=== PATIENT | female | born 1990 | race Caucasian/White ===

== ENCOUNTER 2023-09-04 10:25 | Emergency (ER) | payer OTHER, SELFPAY ==
[2023-09-04 10:30] VITALS: BP 108/70
[2023-09-04 10:35] LABS: Glucose - Point of Care 341 mg/dl (70-99)
--- NOTE | 2023-09-04 11:45 | ED.GENMED ---
History of Present Illness
<Alicia Prather MD, Resident - Last Filed: 09/04/23 14:45>
General
Chief Complaint: Abdominal Symptoms
Source: patient and family
Time Seen by Provider: 09/04/23 10:37
History of Present Illness
History of Present Illness:
33-year-old female, Ms. Gilda Blank with history of Down syndrome, hypothyroidism, IDDM presented to the ER complaining of nausea, abdominal pain, vomiting and diarrhea. History is taken from the patient and her mom who is at bedside.
Patient has returned from [place], [place], 2 days ago and had a dentist visit yesterday for toothache. She was started on amoxicillin and she took 2 tablets yesterday. Patient's mom reports fever up to 101 and elevated blood sugar levels in the 250s
from glucose monitor yesterday night. She also reports her right side of the face was swollen(from tooth ache, dental infection). Early in the morning today patient was throwing up, 4 episodes of vomiting, no hematemesis, had epigastric
nonradiating abdominal pain whenever she threw up. Patient reports taking elderberry syrup, Pepcid for her nausea but of no much help. Her last menstrual period was 1 week ago.
If applicable-neuro sx onset
Date of onset of symptoms: 09/03/23
Past History
<Alicia Prather MD, Resident - Last Filed: 09/04/23 14:45>
Past History
ED Past Medical History: IDDM, Hypothyroidism and Other (Down's Syndrome)
ED Past Surgical History: None
Social History
Tobacco: Non-smoker
Alcohol: None
Drug: None
Personal: Single
Living: with family
Family History
Family History: Other (No significant)
Review of Systems
<Alicia Prather MD, Resident - Last Filed: 09/04/23 14:45>
Review of Systems
All Other Systems: ROS reviewed and negative except as documented in HPI and ROS
Phy Exam
<Alicia Prather MD, Resident - Last Filed: 09/04/23 14:45>
Physical Exam
Physical Exam:
GEN: Well appearing. In no acute distress
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
HENT: Right upper incisor� caries, facial swelling on the right side, oral mucosa dry, no JVD, no cervical adenopathy.
Lungs: CTAB, no wheezes, rales, rhonchi, normal chest wall excursion
Cardiac: RRR, no M/R/G, no peripheral edema. Radial pulses 2+ bilat
Abdomen: S, NT, ND, BS +, no masses or hepatosplenomegaly
Neuro: AO x 3, no focal deficits to BUE/BLE, normal sensation throughout
Skin: No rashes, petechiae. Normal color, no pallor or jaundice.
Psych: Calm, cooperative
Course
<Alicia Prather MD, Resident - Last Filed: 09/04/23 14:45>
Orders/Labs/Results
Orders:
Orders
09/04/23 11:39
Urinalysis Reflex To Culture Urgent
Test Result ONCE
09/04/23 11:42
0.9% Sodium Chloride 500 ml [Nss] 500 ml IV BOLUS
Ondansetron Injectable [Zofran] 4 mg IV NOW STA
09/04/23 12:07
Complete Blood Count/With Diff Urgent
Comprehensive Metabolic Panel Urgent
HCG, Serum Qualitative Screen Urgent
Lipase Urgent
09/04/23 12:08
CT Abd/pelvis W Iv Cont Urgent
Comment:
Reason For Exam: abdominal symptoms, nausea, vomiting, diarrhea
09/04/23 13:08
CT Facial Bones W/o Iv Contras Urgent
Comment:
Reason For Exam: right facial swelling
09/04/23 13:36
Ketorolac [Toradol] 15 mg IV NOW STA
09/04/23 13:45
0.9% Sodium Chloride 1000 ml [Nss] 1,000 ml IV 125 mls/hr
Abnormal Lab Results
09/04/23 09/04/23 09/04/23
10:34 12:07 14:39
WBC 14.8 H 10^3/uL
(4.8-10.8)
RBC 3.68 L 10^6/uL
(4.20-5.40)
Hct 35.5 L %
(37.0-47.0)
MCH 34.5 H pg
(27.0-31.0)
Absolute Neuts (auto) 13.3 H 10^3/uL
(1.4-6.5)
Absolute Lymphs (auto) 0.6 L 10^3/uL
(1.2-3.4)
Absolute Monos (auto) 0.9 H 10^3/uL
(0.1-0.6)
Neutrophils % 89.6 H %
(42.2-75.2)
Lymphocytes % 3.8 L %
(20.5-51.1)
Chloride 109 H mmol/L
(98-107)
Carbon Dioxide 16 L mmol/L
(22-30)
BUN 18 H mg/dl
(7-17)
Glucose 324 H mg/dl
(70-99)
POC Glucose 341 H mg/dl 243 H mg/dl
(70-99) (70-99)
09/04/23 12:07
09/04/23 12:07
Vital Signs
Initial and Last Documented VS:
Initial Vital Signs
Temp Pulse Resp BP Pulse Ox
97.8 F 113 20 108/70 100
09/04/23 10:30 09/04/23 10:30 09/04/23 10:30 09/04/23 10:30 09/04/23 10:30
Last Documented Vital Signs
Temp Pulse Resp BP Pulse Ox
97.8 F 98 20 92/55 99
09/04/23 10:30 09/04/23 14:44 09/04/23 10:30 09/04/23 14:44 09/04/23 14:44
<Eduardo Davis MD - Last Filed: 09/04/23 14:41>
Orders/Labs/Results
Orders:
Orders
09/04/23 11:39
Urinalysis Reflex To Culture Urgent
Test Result ONCE
09/04/23 11:42
0.9% Sodium Chloride 500 ml [Nss] 500 ml IV BOLUS
Ondansetron Injectable [Zofran] 4 mg IV NOW STA
09/04/23 12:07
Complete Blood Count/With Diff Urgent
Comprehensive Metabolic Panel Urgent
HCG, Serum Qualitative Screen Urgent
Lipase Urgent
09/04/23 12:08
CT Abd/pelvis W Iv Cont Urgent
Comment:
Reason For Exam: abdominal symptoms, nausea, vomiting, diarrhea
09/04/23 13:08
CT Facial Bones W/o Iv Contras Urgent
Comment:
Reason For Exam: right facial swelling
09/04/23 13:36
Ketorolac [Toradol] 15 mg IV NOW STA
09/04/23 13:45
0.9% Sodium Chloride 1000 ml [Nss] 1,000 ml IV 125 mls/hr
Abnormal Lab Results
09/04/23 09/04/23 09/04/23
10:34 12:07 14:39
WBC 14.8 H 10^3/uL
(4.8-10.8)
RBC 3.68 L 10^6/uL
(4.20-5.40)
Hct 35.5 L %
(37.0-47.0)
MCH 34.5 H pg
(27.0-31.0)
Absolute Neuts (auto) 13.3 H 10^3/uL
(1.4-6.5)
Absolute Lymphs (auto) 0.6 L 10^3/uL
(1.2-3.4)
Absolute Monos (auto) 0.9 H 10^3/uL
(0.1-0.6)
Neutrophils % 89.6 H %
(42.2-75.2)
Lymphocytes % 3.8 L %
(20.5-51.1)
Chloride 109 H mmol/L
(98-107)
Carbon Dioxide 16 L mmol/L
(22-30)
BUN 18 H mg/dl
(7-17)
Glucose 324 H mg/dl
(70-99)
POC Glucose 341 H mg/dl 243 H mg/dl
(70-99) (70-99)
09/04/23 12:07
09/04/23 12:07
Vital Signs
Initial and Last Documented VS:
Initial Vital Signs
Temp Pulse Resp BP Pulse Ox
97.8 F 113 20 108/70 100
09/04/23 10:30 09/04/23 10:30 09/04/23 10:30 09/04/23 10:30 09/04/23 10:30
Last Documented Vital Signs
Temp Pulse Resp BP Pulse Ox
97.8 F 98 20 92/55 99
09/04/23 10:30 09/04/23 14:44 09/04/23 10:30 09/04/23 14:44 09/04/23 14:44
<Alicia Prather MD, Resident - Last Filed: 09/04/23 14:45>
MDM/Problems Addressed
Differential Diagnosis Includes:
Gastroenteritis, appendicitis, IBD, IBS, colitis, antibiotic side effect, DKA
MDM/Problems Addressed:
Labs�leukocytosis, WBC at 14.8, hyperglycemia, no anion gap.
Urinalysis�no evidence of infection
Patient is tachycardic.
Patient was given IV fluids, antiemetics.
CT abdomen pelvis�no evidence of acute pathology
CT facial bones�evidence of right facial soft tissue inflammation may be of dental origin given the history of a recent dental visit.
Patient has clinically improved and hemodynamically stable.
Stable for discharge.
Advised to continue amoxicillin for dental infection and consult electrologist as scheduled.
<Alicia Prather MD, Resident - Last Filed: 09/04/23 14:45>
*Critical Care Note
Total Time (30-74mins, 75-104mins- exclusive of procedures): Not Applicable
ED Attending Note
<Alicia Prather MD, Resident - Last Filed: 09/04/23 14:45>
-
Portions of this chart may have been created with voice recognition software.� Occasional wrong word or��sound alike� substitutions may have occurred due to the inherent limitations of voice recognition software.
<Eduardo Davis MD - Last Filed: 09/04/23 14:41>
ED Attending Note
Patient seen and examined by attending physician: Yes
I performed a history and physical exam of patient and discussed management with resident, I reviewed resident's note and agree with documented findings and plan of care.: Yes
ED Attending Note:
I have seen and evaluated the patient with a [id number] encounter. I have spoken to the resident and involved in the medical history, the physical exam, medical decision making.
Evaluation and management service: agree unless noted differently below.
Results interpretation: agree unless noted differently below.
Focused HPI: 33-year-old female with a past medical history of Down syndrome, insulin-dependent diabetic with an insulin pump, hypothyroidism who presents to the emergency room with her mother for evaluation of nausea and vomiting also fever;
symptoms starting in the setting of recent dental issue. Patient was apparently away for the weekend with her mother and was complaining of pain in the right upper teeth particularly with eating. Mother brought her to the dentist yesterday and she
was diagnosed with a dental infection was started on amoxicillin and has taken 2 doses so far. She was referred to an electrologist to be seen tomorrow. This morning patient woke up and was feeling nauseated and had 2 episodes of vomiting. She did
have 1 episode of loose stool. No blood in vomitus or stool. She also had a low-grade fever of 100.2 �F last night. Mother decided to bring her to the hospital for assessment. Nausea has improved since arrival. She has not had any abdominal
pain. Denies any urinary symptoms. No respiratory symptoms mother did note some slight swelling the right side of the face this morning. No headache, no neck pain or stiffness. No other complaints. Notably, patient has noted higher than usual
blood sugars in the 200s over the past 24 hours.
Physical exam: Awake alert, nontoxic. Tachycardic but otherwise normal vitals�notably afebrile here. She has no visible swelling of the face; she has some tenderness to percussion of the right upper front tooth #8 but no visible drainage or
swelling around the base of the tooth. She has a supple neck without meningismus. Her abdomen is soft and mildly tender in the epigastric region. Her mucous membranes are dry and she has poor skin turgor.
Medical Decision Makin-year-old female presents for evaluation of nausea and vomiting and low-grade fever in the setting of recent dental infection for which she is on amoxicillin. She appears to be dehydrated here. Suspect dental infection
is driving the fever and that nausea and vomiting might be related to recent initiation of antibiotics. Will check labs including a CBC and a CMP. Will check CT of the face. She does have some abdominal tenderness and given her fever we will
check a CT abdomen pelvis as well especially in the setting of a relatively poor historian. Will check urinalysis. Treat pain and nausea and provide fluids. Reassess after the above.
Labs reviewed: CBC shows a leukocytosis to 14.8, CMP shows hyperglycemia, mild metabolic acidosis but no anion gap (11)�suspect GI losses accounts for this rather than DKA; Accu-Chek shows improving blood sugar at 250 with fluids. Patient provided
additional insulin via insulin pump and will continue to monitor. CT of the abdomen pelvis shows no acute pathology. CT of the face shows some inflammation consistent with a dental infection no clear abscess. She is only had 2 doses of
amoxicillin I think it is reasonable to continue this medication for her dental infection. She has follow-up with specialist tomorrow. I think her nausea and vomiting earlier was likely related to recent antibiotic�advised to take with food.
Prescribe Zofran as needed. No clear negation for admission at this point I think she is stable for discharge. Mother and patient are very comfortable with this plan. All questions answered.
Discharge Plan
Departure
Patient Disposition: Home (Routine Discharge)
Date of Disposition: 09/04/23
Time of Disposition: 14:40
Patient with high blood pressure during this ER visit?: No
Discharge Problem:
Dental infection, Dehydration, Nausea & vomiting, Hyperglycemia
Instructions: Dehydration, Adult (DC), Nausea and Vomiting, Adult (DC), Dental Pain ED
Prescriptions:
New
ondansetron 4 mg tablet,disintegrating
4 mg PO TIDPRN PRN (Reason: nausea/vomiting) Qty: 14 0RF
No Action
levothyroxine 125 mcg Tablet
125 mcg PO DAILY@07
drospirenone-ethinyl estradiol 3-0.02 mg Tablet
1 tab PO DAILY
Patient Own Insulin Pump
SC .CONTINUOUS
Patient Comments:
04/06/22: Per pt's mother, basal rate = 0.5 units/hours with boluses 1 unit per 9g of carbs. Pt's mother reports she gave pt extra dose of 4.4 units today @ 1417
Rx Instructions:
Admelog Insulin (lispro)
fexofenadine [Madison] 180 mg Tablet
180 mg PO DAILYPRN PRN (Reason: itchiness)
ondansetron 4 mg tablet,disintegrating
4 mg PO Q4H PRN (Reason: nausea and vomiting) Qty: 10 0RF
Referrals:
Cintia Chavis DO [Family Provider] -
Activity Restrictions/Additional Instructions:
Thank you for visiting the Emergency Department at [facility].
1. Please schedule a follow up appointment as directed. Call first thing tomorrow morning to make an appointment.
2. If indicated, please take your medications as instructed and indicated on discharge paperwork.
3. If any of your symptoms do not improve, or persist, or become more severe within 6-12 hours, please return to the emergency department for further care.
4. Please return to the emergency department if you develop a headache, neck pain/stiffness, fever greater than 100.4F, chest pain, shortness of breath, persistent nausea, vomiting, slurred speech, difficulty walking, numbness/tingling, weakness,
signs of infection or any other symptoms that are worrisome to you.
Please call [phone] if you have any questions.
Interventions
Interventions:
*Risk Screen - Suicide Last Done: 09/04/23 11:29
*General Assessment Last Done: 09/04/23 11:29
*Neglect/Abuse Screening Last Done: 09/04/23 11:29
*ED COVID-19 Vaccine History Last Done: 09/04/23 11:29
UB-Bkhzyy-Atfeiqmkwj Assessment Last Done: 09/04/23 11:29
Discharge Date and Time
Print Language: BELARUSIAN
[2023-09-04] MEDS: ZOFRAN 4 MG IV (12:12)
[2023-09-04] MEDS: NSS 500 IV (12:12)
[2023-09-04 12:23] LABS: % Basophils 0.4 % (0-2); % Eosinophils 0.1 % (0-6); % Immature Granulocytes 0.3 % (0-0.5); % Lymphocytes 3.8 % (20.5-51.1); % Monocytes 5.8 % (1.7-9.3); % Neutrophils 89.6 % (42.2-75.2); Absolute Basophils 0.1 10^3/uL (0-0.2); Absolute Lymphocytes 0.6 10^3/uL (1.2-3.4); Absolute Monocytes 0.9 10^3/uL (0.1-0.6); Absolute Neutrophils 13.3 10^3/uL (1.4-6.5); Hematocrit 35.5 % (37.0-47.0); Hemoglobin 12.7 g/dL (12.0-16.0); Mean Corp Hgb Conc. 35.8 g/dL (33.0-37.0); Mean Corpuscular Hgb 34.5 pg (27.0-31.0); Mean Corpuscular Volume 96.5 fL (81.0-99.0); Mean Platelet Volume 9.5 fL (7.4-10.4); Nucleated Red Blood Cells % 0 %; Platelet Count 243 10^3/uL (130-400); Red Blood Cell Count 3.68 10^6/uL (4.20-5.40); Red Cell Dist. Width 13.3 % (11.5-14.5); White Blood Cell Count 14.8 10^3/uL (4.8-10.8)
[2023-09-04 12:27] LABS: HCG, Serum Qualitative Screen Negative
[2023-09-04 12:38] LABS: ALT (SGPT) 21 U/L (0-35); AST (SGOT) 27 U/L (14-36); Albumin 3.9 g/dl (3.5-5.0); Alkaline Phosphatase 59 U/L (38-126); Blood Urea Nitrogen 18 mg/dl (7-17); Calcium 8.9 mg/dl (8.4-10.2); Carbon Dioxide 16 mmol/L (22-30); Chloride 109 mmol/L (98-107); Glucose 324 mg/dl (70-99); Lipase 197 U/L (23-300); Potassium 4.4 mmol/L (3.5-5.1); Sodium 136 mmol/L (135-145); Total Bilirubin 1.1 mg/dl (0.2-1.3); Total Protein 6.8 g/dl (6.3-8.2); eGFR > 60.00
[2023-09-04] MEDS: TORADOL 15 MG IV (13:44)
[2023-09-04] MEDS: NSS 1000 IV (13:48)
[2023-09-04 14:43] LABS: Glucose - Point of Care 243 mg/dl (70-99)
[2023-09-04 14:44] VITALS: BP 92/55
== END 2023-09-04 15:27 | disposition home or self-care (01) ==
LOC: EMR 10:25
PROVIDERS: Student in an Organized Health Care Education/Training Program; EMERGENCY PHYSICIAN Emergency Medicine; FAMILY PHYSICIAN Family Medicine
DX: R11.2 Nausea with vomiting, unspecified (principal); R10.13 Epigastric pain; R19.7 Diarrhea, unspecified; K04.7 Periapical abscess without sinus; E86.0 Dehydration; E11.65 Type 2 diabetes mellitus with hyperglycemia; Q90.9 Down syndrome, unspecified; E03.9 Hypothyroidism, unspecified; Z79.4 Long term (current) use of insulin; Z96.41 Presence of insulin pump (external) (internal)
CPT/HCPCS: 99285; 96375; 96361; 96374; 70486; 74177; 80053; 82962; 83690; 84703; 85025; Q9967

== ENCOUNTER 2023-12-12 16:47 | Emergency (ER) | payer OTHER, SELFPAY ==
[2023-12-12 16:52] VITALS: BP 112/99
[2023-12-12 16:53] VITALS: BP 112/99
--- NOTE | 2023-12-12 16:56 | ED.GENMED ---
History of Present Illness
General
Chief Complaint: Fainting Sensation
Source: patient and ambulance crew
Exam Limitations: none
Time Seen by Provider: 12/12/23 16:48
History of Present Illness
History of Present Illness:
See MDM
Past History
Past History
ED Past Medical History: IDDM, Hypothyroidism and Other (Down's Syndrome)
ED Past Surgical History: None
Social History
Tobacco: Non-smoker
Alcohol: None
Drug: None
Personal: Single
Living: with family
Family History
Family History: Other (No significant)
Phy Exam
Physical Exam
Physical Exam:
See MDM
Course
Orders/Labs/Results
Orders:
Orders
12/12/23 16:51
Electrocardiogram (*1) Urgent
Reason for Study: Chest Pain
EKG- Treatment ONCE
12/12/23 16:52
Test Result ONCE
12/12/23 16:54
0.9% Sodium Chloride 1000 ml [Nss] 1,000 ml IV BOLUS
12/12/23 16:58
Complete Blood Count/With Diff Urgent
Comprehensive Metabolic Panel Urgent
HCG, Serum Qualitative Screen Urgent
Comment: Notify provider if positive test present
12/12/23 17:53
Urinalysis Reflex To Culture Urgent
Date Specimen was Collected: 12/12/23
Time Specimen was Collected: 17:50
Abnormal Lab Results
12/12/23 12/12/23
16:58 17:53
RBC 3.74 L 10^6/uL
(4.20-5.40)
Hct 35.7 L %
(37.0-47.0)
MCH 34.0 H pg
(27.0-31.0)
Sodium 132 L mmol/L
(135-145)
Potassium 5.3 H mmol/L
(3.5-5.1)
Chloride 97 L mmol/L
(98-107)
Carbon Dioxide 19 L mmol/L
(22-30)
BUN 27 H mg/dl
(7-17)
Glucose 489 H* mg/dl
(70-99)
Urine Ketones 3+ A
(Negative)
Urine Glucose 3+ A
(Negative)
12/12/23 16:58
12/12/23 16:58
Vital Signs
Initial and Last Documented VS:
Initial Vital Signs
Pulse Resp Pulse Ox
103 16 100
12/12/23 16:51 12/12/23 16:51 12/12/23 16:51
Last Documented Vital Signs
Temp Pulse Resp BP Pulse Ox
98.2 F 121 19 97/50 98
12/12/23 16:53 12/12/23 18:15 12/12/23 18:15 12/12/23 18:00 12/12/23 18:15
MDM/Problems Addressed
Differential Diagnosis Includes:
HPI and MDM Narrative:
33-year-old female presenting for evaluation. Patient was at work at the [employer] and she felt unwell so she laid down. A bystander gave her symptom button and called 911. Patient found to be hyperglycemic. Patient states this usually occurs
when she eats certain foods. Patient states she is feeling better. Will obtain basic blood work, EKG and provide IV fluids
Physical exam
General: Well appearing and non-toxic
HEENT: protecting airway. Dry mucous membranes. Left prosthetic eye in place
Neck: appears supple
CV: No evidence of cyanosis. Regular rate and rhythm. Tachycardia resolved during my assessment
Resp: No accessory muscle use
Abd: Non-distended
Extremities: No deformities
Neuro: alert
Psych: Normal affect
Skin: Intact
Problems Addressed including Acute and Chronic Conditions affecting care:
1. Near syncope
Acuity: acute
Prognosis: stable
Details: Likely in setting of dehydration from likely hyperglycemia. Will give IV fluids. EKG nonischemic
2. Hyperglycemia
Acuity: acute
Prognosis: stable
Details: Will obtain basic blood work to rule out any evidence of DKA
Updates
Mother came to bedside. She looked at the insulin pump and the settings. She has been 'high' all day and it was not appropriately set to give her boluses. Mother fixed the settings and her insulin pump started to bolus her
Differential Diagnosis (but not limited to): Hyperglycemia, dehydration
Testing considered: Urinalysis
Drug therapy (if applicable): OTC meds, please see d/c instruction regarding Rx drugs
Amount and/or Complexity of Data Reviewed
Clinical info obtained from: Patient
External data reviewed: N/A
Labs I independently reviewed (but not limited to): Hyperglycemia
Radiology: N/A
Pulse Ox: not hypoxic
EKG independently reviewed: Sinus tachycardia, normal axis, no STEMI
Toll Collector: Sinus rhythm
Critical Care: N/A
Risk of Complication:
Social Determinants of health: Good social support
Discussed with other providers: N/A
Escalation of Care includes Admit/Obs: After being observed in the Emergency Department, pt stable for discharge.
Occasional wrong word or 'sound a like' substitutions may have occurred due to the inherent limitations of voice recognition software. Read the chart carefully and recognize, using context, where substitutions have occurred.
*Critical Care Note
Total Time (30-74mins, 75-104mins- exclusive of procedures): Not Applicable
ED Attending Note
-
Portions of this chart may have been created with voice recognition software.� Occasional wrong word or��sound alike� substitutions may have occurred due to the inherent limitations of voice recognition software.
Discharge Plan
Departure
Patient Disposition: Home (Routine Discharge)
Date of Disposition: 12/12/23
Time of Disposition: 18:48
Patient with high blood pressure during this ER visit?: No
Discharge Problem:
Hyperglycemia
Instructions: High Blood Sugar, Adult ED
Prescriptions:
No Action
levothyroxine 125 mcg Tablet
125 mcg PO DAILY@07
drospirenone-ethinyl estradiol 3-0.02 mg Tablet
1 tab PO DAILY
Patient Own Insulin Pump
SC .CONTINUOUS
Patient Comments:
04/06/22: Per pt's mother, basal rate = 0.5 units/hours with boluses 1 unit per 9g of carbs. Pt's mother reports she gave pt extra dose of 4.4 units today @ 1417
Rx Instructions:
Admelog Insulin (lispro)
fexofenadine [Madison] 180 mg Tablet
180 mg PO DAILYPRN PRN (Reason: itchiness)
ondansetron 4 mg tablet,disintegrating
4 mg PO Q4H PRN (Reason: nausea and vomiting) Qty: 10 0RF
ondansetron 4 mg tablet,disintegrating
4 mg PO TIDPRN PRN (Reason: nausea/vomiting) Qty: 14 0RF
Activity Restrictions/Additional Instructions:
Please return for any worsening symptoms.
You may return at any time if you have further concerns.
Please follow up with your doctor at the first available appointment, preferably this week.
Thank you for choosing [facility].
Interventions
Interventions:
*Risk Screen - Suicide Last Done: 12/12/23 16:53
*General Assessment Last Done: 12/12/23 16:53
*Neglect/Abuse Screening Last Done: 12/12/23 16:53
ED- Fall Risk Assessment Last Done: 12/12/23 16:53
ED- Cardiac Assessment Last Done: 12/12/23 16:53
ED- Neurological Assessment Last Done: 12/12/23 17:06
Discharge Date and Time
Print Language: BELARUSIAN
[2023-12-12] MEDS: NSS 1000 IV (17:00)
[2023-12-12 17:01] VITALS: BP 143/108
[2023-12-12 17:08] LABS: % Basophils 1.4 % (0-2); % Eosinophils 3.2 % (0-6); % Immature Granulocytes 0.5 % (0-0.5); % Lymphocytes 21.7 % (20.5-51.1); % Monocytes 7.8 % (1.7-9.3); % Neutrophils 65.4 % (42.2-75.2); Absolute Basophils 0.1 10^3/uL (0-0.2); Absolute Eosinophils 0.3 10^3/uL (0-0.7); Absolute Lymphocytes 1.8 10^3/uL (1.2-3.4); Absolute Monocytes 0.6 10^3/uL (0.1-0.6); Absolute Neutrophils 5.3 10^3/uL (1.4-6.5); Hematocrit 35.7 % (37.0-47.0); Hemoglobin 12.7 g/dL (12.0-16.0); Mean Corp Hgb Conc. 35.6 g/dL (33.0-37.0); Mean Corpuscular Volume 95.5 fL (81.0-99.0); Mean Platelet Volume 9.4 fL (7.4-10.4); Nucleated Red Blood Cells % 0 %; Platelet Count 259 10^3/uL (130-400); Red Blood Cell Count 3.74 10^6/uL (4.20-5.40); Red Cell Dist. Width 13.1 % (11.5-14.5); White Blood Cell Count 8.1 10^3/uL (4.8-10.8)
[2023-12-12 17:18] LABS: HCG, Serum Qualitative Screen Negative
[2023-12-12 17:27] LABS: ALT (SGPT) 19 U/L (0-35); AST (SGOT) 31 U/L (14-36); Albumin 4.2 g/dl (3.5-5.0); Alkaline Phosphatase 48 U/L (38-126); Blood Urea Nitrogen 27 mg/dl (7-17); Calcium 9.1 mg/dl (8.4-10.2); Carbon Dioxide 19 mmol/L (22-30); Chloride 97 mmol/L (98-107); Glucose 489 mg/dl (70-99); Potassium 5.3 mmol/L (3.5-5.1); Sodium 132 mmol/L (135-145); Total Bilirubin 1.1 mg/dl (0.2-1.3); Total Protein 7.3 g/dl (6.3-8.2); eGFR > 60.00
[2023-12-12 18:00] VITALS: BP 97/50
[2023-12-12 18:04] LABS: Urine Albumin Negative (Neg - Trace); Urine Bilirubin Negative (Negative); Urine Character Clear (Clear); Urine Color Yellow; Urine Glucose 3+ (Negative); Urine Ketone 3+ (Negative); Urine Leukocyte Negative (Negative); Urine Nitrite Negative (Negative); Urine Occult Blood Negative (Negative); Urine Urobilinogen Negative (Neg - 1+)
--- NOTE | 2023-12-12 18:14 | EDRN ---
Pts mother is bolusing her with insulin via wearable pod. Dr. Gong aware.
[2023-12-12] MEDS: ZOFRAN ODT (ORALLY DISINTEGRATING) 4 MG PO (19:35)
== END 2023-12-12 21:25 | disposition home or self-care (01) ==
LOC: EMR 16:47
PROVIDERS: EMERGENCY PHYSICIAN Student in an Organized Health Care Education/Training Program; FAMILY PHYSICIAN Family Medicine
DX: E11.65 Type 2 diabetes mellitus with hyperglycemia (principal); E03.9 Hypothyroidism, unspecified; Q90.9 Down syndrome, unspecified; Z79.4 Long term (current) use of insulin
CPT/HCPCS: 96360; 99284; 80053; 81003; 84703; 85025; 93005

== ENCOUNTER 2024-05-12 08:32 | Emergency (ER) | payer SELFPAY ==
[2024-05-12 08:34] VITALS: BP 134/89
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
[2024-05-12] MEDS: TYLENOL 650 MG PO (09:08)
[2024-05-12 10:02] VITALS: BP 128/81
== END 2024-05-12 10:00 | disposition home or self-care (01) ==
LOC: EMR 08:32
PROVIDERS: EMERGENCY PHYSICIAN Emergency Medicine
DX: M25.521 Pain in right elbow (principal); S50.01XA Contusion of right elbow, initial encounter; V03.10XA Pedestrian on foot injured in collision with car, pick-up truck or van in traffic accident, initial encounter; Q90.9 Down syndrome, unspecified
CPT/HCPCS: 99283; 73080

== ENCOUNTER → 2025-01-13 15:05 | Outpatient (REF) | payer OTHER, SELFPAY | LOC: RAD 15:05 | PROVIDERS: ATTENDING PHYSICIAN Emergency Medicine; PRIMARYCARE PHYSICIAN Family Medicine | DX: S93.602A Unspecified sprain of left foot, initial encounter (principal) | CPT/HCPCS: 73630 ==